=== PATIENT | female | born 1965 | race Asian ===

== ENCOUNTER 2017-10-11 21:45 | Observation (INO) | payer OTHER ==
[~2017-10-11] VITALS: Ht 149.9 cm; Wt 71.7 kg
[2017-10-11] MEDS ORDERED: LR 1,000 ML IV SCH (22:03)
[2017-10-11] MEDS ORDERED: MORPHINE SULFATE 10 MG/ML VIAL IM ONE (22:15)
[2017-10-11] MEDS ORDERED: PROMETHAZINE HCL 25 MG/ML AMP IM PRN (22:15)
[2017-10-11 23:29] LABS: BASOPHILS % (AUTO) 0.3 % (0.0-2.0); EOSINOPHILS # (AUTO) 0.2 K/uL (0.0-0.4); EOSINOPHILS % (AUTO) 3.2 % (0.0-4.0); HEMATOCRIT 37.5 % (36-48); HEMOGLOBIN 12.4 g/dL (12.0-16.0); LYMPHOCYTES # (AUTO) 1.5 K/uL (1.0-5.5); LYMPHOCYTES % (AUTO) 19.9 % (20.5-51.5); MEAN CORPUSCULAR HEMOGLOBIN 29 pg (27-31); MEAN CORPUSCULAR HGB CONC 33 % (32-36); MEAN CORPUSCULAR VOLUME 88 fL (79.0-98.0); MONOCYTES # (AUTO) 0.4 K/uL (0.0-1.0); NEUTROPHILS # (AUTO) 5.2 K/uL (1.8-7.7); NEUTROPHILS % (AUTO) 71.6 % (40.0-70.0); PLATELET COUNT (AUTO) 326 K/uL (130-430); RED BLOOD CELL COUNT(AUTO) 4.26 MIL/uL (4.2-6.2); WHITE BLOOD COUNT (AUTO) 7.3 K/uL (4.8-10.8)
[2017-10-12 00:54] VITALS: BP_SYST 114
== END 2017-10-12 16:30 | disposition home or self-care (01) ==
LOC: SPU 21:45
PROVIDERS: ADMIT Specialist; ATTEND Specialist
DX: O46.92 Antepartum hemorrhage, unspecified, second trimester (principal); Z3A.18 18 weeks gestation of pregnancy
CPT/HCPCS: 36415; 76805-TC; 85025; 86886; 86900; 86901; 96372; G0378; J2270; J2550